=== PATIENT | male | born 1955 | race Caucasian/White ===

== ENCOUNTER 2023-05-31 11:48 | Observation (INO) ==
[2023-05-31 12:35] LABS: ABS Basophils 0.1 10^3/uL (0.0-0.1); ABS Eosinophils 0.1 10^3/uL (0.0-0.5); ABS Lymphocytes 0.8 10^3/uL (1.0-4.8); ABS Monocytes 0.4 10^3/uL (0.0-1.1); ABS Neutrophils 3.7 10^3/uL (1.5-7.6); ABS Nucleated RBC 0.01 10^3/ul; Eosinophil % 1.8 %; Hematocrit 43.7 % (38-53); Hemoglobin 14.9 g/dL (13.2-16.3); Lymphocyte % 16.6 %; Mean Corpuscular Hemoglobin 29.4 pg (27-33); Mean Corpuscular Hgb Conc 34.1 g/dL (31-36); Mean Corpuscular Volume 86.4 fL (80-97); Mean Platelet Volume 8.5 fL (7.5-11.2); Nucleated Red Blood Cells % 0.2 %/100WBC (0.0-0.8); Platelet Count 207 10^3/uL (150-450); Red Blood Count 5.05 10^6/uL (4.06-5.63); Red Cell Distribution Width 14.3 % (12-17); White Blood Count 5.1 10^3/uL (3.6-10.2)
[2023-05-31 12:38] LABS: INR 1.15 (0.83-1.13)
[2023-05-31 12:52] LABS: ALT 20 U/L (7-52); AST 21 U/L (13-39); Albumin 4.1 g/dL (3.2-5.2); Albumin/Globulin Ratio 1.5 (1-3); Alkaline Phosphatase 38 U/L (35-149); Anion Gap 4 mmol/L (2-16); Blood Urea Nitrogen 17 mg/dL (6-24); CO2 Carbon Dioxide 30 mmol/L (22-32); Calcium 9.6 mg/dL (8.6-10.3); Chloride 103 mmol/L (101-111); Creatinine, Serum 0.77 mg/dL (0.67-1.17); Globulin 2.7 g/dL (2-4); Glucose 154 mg/dL (70-100); Potassium 4.1 mmol/L (3.5-5.0); Sodium 137 mmol/L (135-145); Total Bilirubin 0.5 mg/dL (0.2-1.0); Total Protein 6.8 g/dL (6.4-8.9); eGFR CKD-EPI 96.9 (>60)
[2023-05-31 12:58] LABS: High Sens Troponin Baseline < 3 pg/mL (<20)
[2023-05-31 14:19] LABS: High Sensitivity Troponin 1 Hr < 3 pg/mL (<20)
[2023-05-31 22:11] LABS: C Reactive Protein < 1.00 mg/L (<8.01); Cholesterol 195 mg/dL; LDL Cholesterol 124 mg/dL; Triglycerides 84 mg/dL
[2023-05-31] MEDS: Aspirin EC 81 mg TAB.EC (enteric coated) PO SCH (22:12)
[2023-06-01 07:15] LABS: Hematocrit 44.4 % (38-53); Hemoglobin 14.6 g/dL (13.2-16.3); Mean Corpuscular Hemoglobin 28.6 pg (27-33); Mean Corpuscular Hgb Conc 32.8 g/dL (31-36); Mean Platelet Volume 8.8 fL (7.5-11.2); Platelet Count 203 10^3/uL (150-450); Red Cell Distribution Width 14.8 % (12-17); White Blood Count 4.3 10^3/uL (3.6-10.2)
[2023-06-01] MEDS ORDERED: Enoxaparin 40 MG/0.4 ML SYR SUBCUT SCH ×2 (08:00→21:00)
[2023-06-01 08:19] LABS: Calcium 9.1 mg/dL (8.6-10.3); Creatinine, Serum 0.9 mg/dL (0.67-1.17); Potassium 4.5 mmol/L (3.5-5.0); eGFR CKD-EPI 92.5 (>60)
[2023-06-01] MEDS: Aspirin EC 81 mg TAB.EC (enteric coated) PO SCH (09:14)
[2023-06-01 19:18] VITALS: BP 104/70
== END 2023-06-01 19:30 | disposition home or self-care (01) ==
LOC: EDHOLD 11:48 → ED 11:48 → SUATTDRO 19:00 → MEDTELE 20:14
PROVIDERS: ADMIT Internal Medicine; ATTEND Hospitalist